=== PATIENT | female | born 1990 | race Caucasian/White ===

== ENCOUNTER 2018-02-23 17:33 | Emergency (ER) | payer SELFPAY | END 2018-02-23 18:26 | disposition left against medical advice (07) | LOC: MADERS 17:33 | DX: Z53.21 Procedure and treatment not carried out due to patient leaving prior to being seen by health care provider (principal) ==

== ENCOUNTER 2018-07-18 15:26 | Emergency (ER) | payer OTHER, SELFPAY ==
[2018-07-18] MEDS ORDERED: Acetaminophen 500 MG TAB ONE (16:20)
[2018-07-18] MEDS ORDERED: Ibuprofen 800 MG TAB ONE (16:20)
[2018-07-18] MEDS ORDERED: Ondansetron ODT 4 MG TAB ONE (16:20)
[2018-07-18] MEDS ORDERED: Prochlorperazine 10 MG/2 ML VIAL ONE (16:57)
[2018-07-18] MEDS ORDERED: Oseltamivir 75 MG CAP ONE (17:10)
== END 2018-07-18 18:35 | disposition home or self-care (01) ==
LOC: MADERS 15:26
DX: J11.1 Influenza due to unidentified influenza virus with other respiratory manifestations (principal); G43.909 Migraine, unspecified, not intractable, without status migrainosus; F32.9 Major depressive disorder, single episode, unspecified; F41.9 Anxiety disorder, unspecified
CPT/HCPCS: 87804; 96372; J0780; Q0162

== ENCOUNTER 2019-03-06 14:15 | Emergency (ER) | payer OTHER ==
[~2019-03-06 14:15] MED LIST: Sodium Chloride 0.9% 1,000 ML BAG ONE
[2019-03-06] MEDS ORDERED: Ondansetron PF 4 MG/2 ML Vial ONE (15:08)
[2019-03-06 15:17] LABS: Bilirubin Negative (Negative); Blood, Urine Negative (Negative); Glucose, Urine (Dipstick) Negative (Negative); Leukocyte Negative (Negative); Nitrite Positive (Negative); Protein, Urine (Dipstick) Negative (Neg-Trace)
[2019-03-06 15:30] LABS: Clarity Cloudy (Clear)
[2019-03-06 15:34] LABS: Bacteria/HPF 4+ HPF (None Seen); RBC/HPF 0-3 HPF (0-3); WBC/HPF 0-3 HPF (0-3)
[2019-03-06 15:38] LABS: #Basophils 0.1 thou/uL (0.0-0.2); #Eosinphils 0.2 thou/uL (0.0-0.7); #Lymphocytes 1.6 thou/uL (1.20-3.40); #Monocytes 0.5 thou/uL (0.11-0.59); %Basophils 0.9 % (0.0-1.0); %Eosinophils 1.8 % (0.0-10.0); %Lymphocytes 19.5 % (21.0-51.0); %Neutrophils 71.7 % (42.0-75.0); Hemoglobin 10.8 g/dL (12.0-16.0); Mean Corpuscular HGB CONC 33.9 g/dL (32.0-36.0); Mean Corpuscular Hemoglobin 30.2 pg (27.0-31.0); Mean Corpuscular Volume 88.9 fL (78.0-98.0); Mean Platelet Volume 8.8 fL (7.4-10.4); Platelet Count 209 thou/uL (130-400); RBC Distribution Width 12.5 % (11.5-14.5); Red Blood Cell (RBC) Count 3.57 mill/uL (4.20-5.40); White Blood Cell (WBC) Count 8.3 thou/uL (4.8-10.8)
[2019-03-06 15:52] LABS: ALT (SGPT) 22 U/L (8-55); AST (SGOT) 22 U/L (5-34); Albumin 3.7 g/dL (3.5-5.0); Alkaline Phosphatase 56 U/L (40-110); Anion Gap 14 mmol/L (10-20); BUN (Urea Nitrogen) 8 mg/dL (7.0-18.7); Bilirubin, Total 0.2 mg/dL (0.2-1.2); Calc. Creatinine Clearance 0 mL/min (70-130); Carbon Dioxide 24 mmol/L (22-29); Chloride 103 mmol/L (98-107); Estimated GFR-MDRD Greater than 90; Globulin 3.2 g/dL (2.4-3.5); Glucose 87 mg/dL (70-105); Lipase 37 U/L (8-78); Potassium 3.8 mmol/L (3.5-5.1); Protein, Total 6.9 g/dL (6.0-8.3); Sodium 137 mmol/L (136-145)
[2019-03-06] MEDS ORDERED: Metoclopramide HCl 10 MG/2 ML VIAL ONE (16:47)
== END 2019-03-06 18:05 | disposition home or self-care (01) ==
LOC: MADERS 14:15
DX: O98.512 Other viral diseases complicating pregnancy, second trimester (principal); B34.9 Viral infection, unspecified; O99.342 Other mental disorders complicating pregnancy, second trimester; F31.9 Bipolar disorder, unspecified
CPT/HCPCS: 80053; 81003; 81015; 83690; 85025; 96361; 96374; 96375; J2405; J2765; J7050

== ENCOUNTER 2020-03-11 07:05 | Emergency (ER) | payer OTHER ==
[2020-03-11] MEDS ORDERED: Lidocaine 1% w/Epinephrine 1:100K 20 ML VIAL ONE (07:36)
== END 2020-03-11 07:59 | disposition home or self-care (01) ==
LOC: MADERS 07:05
DX: L02.211 Cutaneous abscess of abdominal wall (principal); F31.9 Bipolar disorder, unspecified; G43.909 Migraine, unspecified, not intractable, without status migrainosus
CPT/HCPCS: 10061